=== PATIENT | female | born 1975 | race Caucasian/White ===

== ENCOUNTER 2019-09-10 19:48 | Inpatient (IN) | payer OTHER ==
[~2019-09-10] VITALS: Ht 160 cm; Wt 72.6 kg
[2019-09-10] MEDS ORDERED: ONDANSETRON HCL/PF 4 MG/2 ML VIAL ONE (20:51)
[2019-09-10 20:53] LABS: APPEARANCE,URINE Clear (CLEAR); BILIRUBIN,URINE Negative (NEGATIVE); BLOOD, URINE Trace-intact Ery/uL (NEGATIVE); COLOR,URINE Yellow (YELLOW); KETONES,URINE Negative (NEGATIVE); LEUKOCYTE ESTERASE ,URINE Negative (NEGATIVE); NITRITE, URINE Negative (NEGATIVE); PROTEIN,URINE Negative (NEGATIVE); UGLUCOSE Negative (NEGATIVE); UROBILINOGEN,URINE 0.2 EU/dL (0.2)
[2019-09-10 20:53] LABS: BASOPHILS % (AUTO) 0.5 % (0.0-2.0); EOSINOPHILS % (AUTO) 0.9 % (0.0-6.0); HEMATOCRIT 38 % (33-45); HEMOGLOBIN 12.8 g/dL (11.5-14.8); LYMPHOCYTES # (AUTO) 2.3 /CMM (0.8-4.8); LYMPHOCYTES % (AUTO) 26.9 % (20.0-44.0); MEAN CORPUSCULAR HGB CONC 34 g/dl (31.0-36.0); MEAN CORPUSCULAR VOLUME 88 fL (82-100); MONOCYTES # (AUTO) 0.6 /CMM (0.1-1.30); MONOCYTES % (AUTO) 7.3 % (2.0-12.0); NEUTROPHILS # (AUTO) 5.5 /CMM (1.8-8.9); NEUTROPHILS % (AUTO) 64.4 % (43.0-81.0); PLATELET COUNT (AUTO) 290 /CMM (150-450); RED BLOOD CELL COUNT(AUTO) 4.28 MIL/uL (4.0-5.2); WHITE BLOOD COUNT (AUTO) 8.6 K/uL (4.3-11.0)
[2019-09-10] MEDS ORDERED: IV NS 0.9% 1,000 ML BAG IV ONE (21:00)
[2019-09-10] MEDS ORDERED: ONDANSETRON HCL/PF 4 MG/2 ML VIAL IVP ONE (21:00)
[2019-09-10 21:05] LABS: CALCIUM, SERUM 8.9 mg/dL (8.5-10.1); CREATININE 0.6 mg/dL (0.6-1.3)
[2019-09-10 21:08] LABS: BACTERIA,URINE Many /HPF (None Seen); RBC,URINE 0-2 /HPF (0-2); SQUAMOUS EPITHELIAL CELL,UR Few /HPF (None Seen); WBC,URINE 0-2 /HPF (0-3)
[2019-09-10 21:10] LABS: ALBUMIN 3.5 g/dL (3.4-5.0); BILIRUBIN,TOTAL 0.1 mg/dL (0.2-1.0); TOTAL PROTEIN, SERUM 7.5 g/dL (6.4-8.2)
[2019-09-10] MEDS ORDERED: CT SWABBABLE VALVE TRANS SET 1 EA INFUS.SET MC ONE (21:24)
[2019-09-10] MEDS ORDERED: IV NS 0.9% 250 ML IV ONE (21:24)
[2019-09-10] MEDS ORDERED: IOHEXOL-300 100 ML VIAL IV ONE ×2 (21:24→21:30)
--- NOTE | 2019-09-10 22:36 | NUR ---
GAVE MOVESHEET TO ADMITTING FOR INSURANCE AUTH
[2019-09-10] MEDS ORDERED: PIPERACILLIN /TAZOBACTAM 3.375 G in IV D5W 50 ML IV ONE (23:00)
[2019-09-10] MEDS ORDERED: PIPERACILLIN /TAZOBACTAM 3.375 G VIAL IV ONE (23:42)
[2019-09-11] MEDS ORDERED: ONDANSETRON HCL/PF 4 MG/2 ML VIAL ONE (01:19)
[2019-09-11] MEDS ORDERED: MORPHINE SULFATE INJ 2 MG/ML DISP.SYRIN ONE (01:20)
[2019-09-11] MEDS ORDERED: MORPHINE SULFATE INJ 2 MG/ML DISP.SYRIN IV ONE (01:30)
[2019-09-11] MEDS ORDERED: ONDANSETRON HCL/PF 4 MG/2 ML VIAL IV ONE (01:30)
--- NOTE | 2019-09-11 02:00 | NUR ---
DR TEJADA PAGED PER DR PERSAUD.
--- NOTE | 2019-09-11 02:15 | NUR ---
DR TEJADA PAGED PER DR PERSAUD.
--- NOTE | 2019-09-11 02:45 | NUR ---
DR TEJADA PAGED PER DR PERSAUD.
--- NOTE | 2019-09-11 03:10 | NUR ---
dr mock on the phone w/ dr. mcbride
--- NOTE | 2019-09-11 03:15 | NUR ---
REPORT GIVEN TO MACK GONZALEZ FOR JOHANA.
--- NOTE | 2019-09-11 03:26 | NUR ---
ATTEMPTED TO REACH TO DR. YENI TEJADA SURGEON FOR CONSULT. AWAITING FOR HIS CALL BACK
[2019-09-11 04:00] VITALS: BP 123/86
--- NOTE | 2019-09-11 04:02 | NUR ---
PT TRANSPORTED TO UNIT [facility] BY EMT. NAD NOTED. [facility]
[2019-09-11] MEDS ORDERED: CHOL200026 PO (04:18)
[2019-09-11] MEDS ORDERED: LEVO25TA7 PO (04:18)
--- NOTE | 2019-09-11 04:19 | NUR ---
RN NOTES ADMITTED PATIENT FROM ER, TRANSPORTED VIA WHEELCHAIR, ALERT ORIENTEDX4, COMPLAINTS OF RIGHT LOWER QUADRANT PAIN / AT THIS TIME, BREATHING EVEN AND UNLABORED, ORIENTED TO ROOM AND THE USE OF CALL LIGHT, INITIAL PHYSICAL ASSESSMENT AND ADMISSION PROCESS DONE, SAFETY MEASURES IN PLACE, REPOSITIONED FOR COMFORT, NO NAUSEA AND VOMITING NOTED AT THIS TIME, IV ACCESS ON HER RIGHT AC G#20 INTACT AND PATENT, SKIN IS INTACT. PROVIDED COMFORT, MAINTAINED ON NPO, ALL NEEDS ANTICIPATED, WILL MONITOR ACCORDINGLY.
[2019-09-11] MEDS ORDERED: HYDROCODONE/APAP 5/325MG 1 EACH TABLET PO PRN (04:30)
[2019-09-11] MEDS ORDERED: ONDANSETRON HCL/PF 4 MG/2 ML VIAL IV PRN (04:30)
[2019-09-11] MEDS ORDERED: ACETAMINOPHEN 325 MG TABLET PO PRN (04:30)
[2019-09-11] MEDS ORDERED: HYDROMORPHONE 1 MG/1 ML DISP.SYRIN IV PRN (04:30)
--- NOTE | 2019-09-11 07:02 | NUR ---
RN NOTES ALL NEEDS ATTENDED AND MET, MAINTAINED ON NPO EXCEPT MEDS PER MD ORDER. RESTING COMFORTABLY AT THIS TIME. WILL ENDORSE TO AM NURSE FOR CONTINUITY OF CARE.
[2019-09-11 07:28] LABS: BASOPHILS % (AUTO) 0.4 % (0.0-2.0); EOSINOPHILS % (AUTO) 1.2 % (0.0-6.0); HEMATOCRIT 38 % (33-45); HEMOGLOBIN 12.9 g/dL (11.5-14.8); LYMPHOCYTES # (AUTO) 2.6 /CMM (0.8-4.8); LYMPHOCYTES % (AUTO) 28.8 % (20.0-44.0); MEAN CORPUSCULAR HGB CONC 34 g/dl (31.0-36.0); MEAN CORPUSCULAR VOLUME 88 fL (82-100); MONOCYTES # (AUTO) 0.7 /CMM (0.1-1.30); MONOCYTES % (AUTO) 7.7 % (2.0-12.0); NEUTROPHILS # (AUTO) 5.6 /CMM (1.8-8.9); NEUTROPHILS % (AUTO) 61.9 % (43.0-81.0); PLATELET COUNT (AUTO) 268 /CMM (150-450); RED BLOOD CELL COUNT(AUTO) 4.35 MIL/uL (4.0-5.2)
[2019-09-11 07:46] LABS: CALCIUM, SERUM 8.4 mg/dL (8.5-10.1); CREATININE 0.7 mg/dL (0.6-1.3)
[2019-09-11 08:00] VITALS: BP 113/73
--- NOTE | 2019-09-11 08:00 | NUR ---
RN NOTES RECEIVED PATIENT IN THE BED A/O 4 HAS NO ACUTE RESPIRATORY DISTRESS, V/S STABLE, PATIENT HAS NO COMPLAINING OF PAIN AT THIS TIME, AMBULATORY SELF CARE. CALL LIGHT WITHIN TO REACH, CONTINUED MONITORING.
--- NOTE | 2019-09-11 13:00 | NUR ---
RN NOTES PATIENT EAT 25% LUNCH BECAUSE PER SCALE INSTALLER ANNITA POSSIBLE SURGERY TOMORROW. NOTIFIED Dr TEJADA AND PER SURGEON KEEP PATIENT NPO POSSIBLE LATE SURGERY. ORDER TAKEN AND CARRIED OUT.
[2019-09-11] MEDS ORDERED: PIPERACILLIN /TAZOBACTAM 3.375 G in IV D5W 50 ML IV ONE (14:00)
[2019-09-11 16:00] VITALS: BP 122/75
--- NOTE | 2019-09-11 18:20 | NUR ---
rn notes Patient sign consent form , NPO possible surgery.
--- NOTE | 2019-09-11 18:30 | NUR ---
RN NOTES PATIENT IN THE BED REFUSED PAIN, NO NAUSEA/VOMITING AT THIS TIME, NPO. FAMILY NEXT TO THE BED, CALL LIGHT WITHIN TO REACH. ENDORSED ONCOMING NURSE FOLLOW PLAN OF CARE.
--- NOTE | 2019-09-11 19:53 | NUR ---
RN NOTES RECEIVED PATIENT AWAKE ALERT ORIENTED X4, AND DAUGHTER AT BEDSIDE. SAFETY MEASURES IN PLACE, CALL LIGHT WITH IN EASY REACH. BREATHING EVEN AND UNLABORED, NO SIGNS OF ACUTE DISTRESS NOTED, PAIN IS MANAGEABLE AT THIS TIME, IV ACCESS ON HER RIGHT AC G#18 INTACT AND PATENT. PATIENT WANTS TO KNOW IF SURGERY WILL BE TONIGHT, INFORMED HER THAT OF THIS TIME THERE IS NO OR SCHEDULE YET. WILL INFORM HER SOON SCHEDULE WILL BE POSTED. PER RN, LEELEE ROD NURSE, REPORTED THAT IT'S POSSIBLE TO HAVE SURGERY TONIGHT. WILL CONTINUE TO MONITOR ACCORDINGLY.
[2019-09-11 20:25] VITALS: BP 120/79
[2019-09-11] MEDS: PIPERACILLIN /TAZOBACTAM 3.375 G in IV D5W 100 ML IV SCH (21:34)
[2019-09-11] MEDS ORDERED: ANESTHESIA TRAY IN PYXIS 1 EA TRAY MC ONE (21:51)
[2019-09-11] MEDS ORDERED: FENTANYL PF 100MCG/2ML AMPUL ONE ×2 (21:58→23:32)
[2019-09-11] MEDS ORDERED: ROCURONIUM BROMIDE 50 MG/5 ML ONE (21:59)
[2019-09-11] MEDS ORDERED: MIDAZOLAM HCL 2 MG/2ML VIAL ONE (21:59)
--- NOTE | 2019-09-11 22:35 | NUR ---
RN NOTES PATIENT HAS BEEN PICKED UP BY OR NURSE / STAFF FOR LAPAROSCOPIC APPENDECTOMY.
[2019-09-11] MEDS ORDERED: BUPIVACAINE 0.5 % PF 150 MG/30 ML VIAL ONE (22:39)
[2019-09-11] MEDS ORDERED: LIDOCAINE 1%-EPI 1:100,000 20 ML VIAL ONE (22:39)
--- NOTE | 2019-09-11 23:50 | NUR ---
RN NOTES RECEIVED REPORT FROM MACK LITTLE FROM RECOVERY ROOM.
--- NOTE | 2019-09-11 23:51 | NUR ---
RN NOTES CALLED AND SPOKE WITH PATIENTS' DAUGHTER ALISSA ) INFORMED HER REGARDING PATIENT'S CURRENT CONDITION.
[2019-09-12] VITALS (7 sets, daily range): BP systolic 101–131; BP diastolic 55–83
--- NOTE | 2019-09-12 00:15 | NUR ---
RN NOTES CAME BACK FROM RECOVERY ROOM, REPORT GIVEN BY MACK LITTLE. STATUS POST LAPAROSCOPY APPENDECTOMY, PATIENT NOT IN ANY ACUTE DISTRESS NOTED, VITAL SIGNS TAKEN AND RECORDED. BP 110/70, HR 66, RR 18, TEMPERATURE 98.2 SATING 96%. WILL CONTINUE TO MONITOR.
[2019-09-12] MEDS: PIPERACILLIN /TAZOBACTAM 3.375 G in IV D5W 100 ML IV SCH (04:53)
--- NOTE | 2019-09-12 06:06 | NUR ---
RN NOTES ALL NEEDS ATTENDED AND MET. ABLE TO REST AND SLEPT AT INTERVALS. PATIENT STATES THAT SHE IS PASSING GAS FOR 2 HOURS, OFFERED ICE CHIPS BUT REFUSED AT THIS TIME. NEEDS ANTICIPATED, CALL LIGHT WITHIN EASY REACH. WILL ENDORSE TO AM NURSE FOR CONTINUITY OF CARE.
[2019-09-12 06:32] LABS: CALCIUM, SERUM 8.8 mg/dL (8.5-10.1); CREATININE 0.8 mg/dL (0.6-1.3); POTASSIUM 4.4 mmol/L (3.5-5.1)
[2019-09-12 06:41] LABS: HEMATOCRIT 40 % (33-45); HEMOGLOBIN 13.2 g/dL (11.5-14.8); LYMPHOCYTES # (AUTO) 0.6 /CMM (0.8-4.8); LYMPHOCYTES % (AUTO) 4.2 % (20.0-44.0); MEAN CORPUSCULAR HGB CONC 33 g/dl (31.0-36.0); MEAN CORPUSCULAR VOLUME 88 fL (82-100); MONOCYTES # (AUTO) 0.1 /CMM (0.1-1.30); NEUTROPHILS # (AUTO) 14.2 /CMM (1.8-8.9); NEUTROPHILS % (AUTO) 94.8 % (43.0-81.0); PLATELET COUNT (AUTO) 293 /CMM (150-450); RED BLOOD CELL COUNT(AUTO) 4.52 MIL/uL (4.0-5.2); WHITE BLOOD COUNT (AUTO) 14.9 K/uL (4.3-11.0)
--- NOTE | 2019-09-12 08:00 | NUR ---
RN NOTES RECEIVED PATIENT IN THE BED SLEEPING, NO ACUTE RESPIRATORY DISTRESS, V/S WNL, PATIENT AROUSE WHEN CALLED NAME OR TOUCHED, PATIENT REFUSED PAIN, INFUSING ZOSYN 100 ML/HR ON RIGHT AC AREA INTACT. SEEN PATIENT BY HOSPITALIST Dr DIANA. PATIENT WILL DISCHARGE HOME TODAY AFTER EATING, AMBULATING, AND WITH OK OF SURGEON Dr TEJADA. CALL LIGHT WITHIN TO REACH, SAFETY PRECAUTION MAINTAINED ALL THE TIME.
[2019-09-12] MEDS ORDERED: HYDR-3972 PO (08:21)
[2019-09-12] MEDS ORDERED: AMOX-427 PO (08:21)
--- NOTE | 2019-09-12 12:44 | NUR ---
FUR BLOWING MACHINE ATTENDANT NOTES PATIENT DISCHARGE BACK TO THE HOME SELF CARE. PATIENT STABLE , REFUSED PAIN, WOUND INTACT, NO REDNESS, V/S STABLE. PATIENT AMBULATORY SELF CARE. PICTURE TAKEN. MED RECONCILIATION AND DISCHARGE ORDER REVIEWED AND EXPLAINED TO THE PATIENT. PATIENT WILL FOLLOW SURGEON IN ONE WEEK, AND TAKE ANTIBIOTIC X5 DAYS. PATIENT SIGN PAPERWORK, PRESCRIPTION HANDED TO THE PATIENT, BELONGING WITH THE PATIENT. ESCORTED PATIENT TO THE LOBBY FOR SAFETY. PATIENT GATE AGENT BY SON NAME IDALIA PHONE # [phone].
== END 2019-09-12 12:30 | disposition home or self-care (01) | DRG 234 ==
LOC: ER 19:49 → MED 09-11 02:55
PROVIDERS: ADMIT Internal Medicine; ATTEND Internal Medicine
PROC: 0DTJ4ZZ Resection of Appendix, Percutaneous Endoscopic Approach (ICD-10-PCS; principal; 2019-09-11)
DX: K35.80 Unspecified acute appendicitis (principal); E83.51 Hypocalcemia; E03.9 Hypothyroidism, unspecified; K42.9 Umbilical hernia without obstruction or gangrene; K40.20 Bilateral inguinal hernia, without obstruction or gangrene, not specified as recurrent; E66.3 Overweight; Z68.28 Body mass index [BMI] 28.0-28.9, adult
CPT/HCPCS: 36415; 80048-TC; 80076-TC; 81000-TC; 83690-TC; 83735-TC; 84703-TC; 85025-TC; 85730-TC; 86850-TC; 87081-TC; 87086-TC; 88304-TC; A4216; G0378; J1100; J1885; J2250; J2270; J2405; J2543; J2704; J2710; J3010; J3490; J7030; J7050; J7060; Q9967

== ENCOUNTER 2019-10-05 19:28 | Emergency (ER) | payer OTHER ==
[~2019-10-05] VITALS: Ht 160 cm; Wt 73.0 kg
[~2019-10-05 19:28] MED LIST: AMOX-427 PO; CHOL200026 PO; HYDR-3972 PO; LEVO25TA7 PO
--- NOTE | 2019-10-05 19:34 | NUR ---
PT CAME INTO THE ED C/O FEVER, CHILLS, LOWER ABDOMINAL PAIN SINCE LAST NIGHT S/P APPENDECTOMY 09/11. PT AAOX4, RR EVEN AND UNLABORED ON RA W/ NAD NOTED. PT CONNCTED TO THE MONITOR AND POX
--- NOTE | 2019-10-05 19:35 | NUR ---
URINE SAMPLE COLLECTED AND SENT TO LAB.
--- NOTE | 2019-10-05 19:37 | NUR ---
BLOOD COLLECTED AND SENT TO LAB
[2019-10-05 19:57] LABS: APPEARANCE,URINE Clear (CLEAR); BILIRUBIN,URINE Negative (NEGATIVE); BLOOD, URINE Trace-intact Ery/uL (NEGATIVE); COLOR,URINE Yellow (YELLOW); KETONES,URINE Negative (NEGATIVE); LEUKOCYTE ESTERASE ,URINE Negative (NEGATIVE); NITRITE, URINE Negative (NEGATIVE); PH,URINE 5.5 (5.0-8.0); PROTEIN,URINE Negative (NEGATIVE); UGLUCOSE Negative (NEGATIVE); UROBILINOGEN,URINE 0.2 EU/dL (0.2)
[2019-10-05 19:57] LABS: BASOPHILS % (AUTO) 0.4 % (0.0-2.0); EOSINOPHILS % (AUTO) 0.7 % (0.0-6.0); HEMATOCRIT 38 % (33-45); HEMOGLOBIN 12.9 g/dL (11.5-14.8); LYMPHOCYTES # (AUTO) 2.3 /CMM (0.8-4.8); LYMPHOCYTES % (AUTO) 27.5 % (20.0-44.0); MEAN CORPUSCULAR HGB CONC 34 g/dl (31.0-36.0); MEAN CORPUSCULAR VOLUME 88 fL (82-100); MONOCYTES # (AUTO) 0.6 /CMM (0.1-1.30); MONOCYTES % (AUTO) 7.3 % (2.0-12.0); NEUTROPHILS # (AUTO) 5.4 /CMM (1.8-8.9); NEUTROPHILS % (AUTO) 64.1 % (43.0-81.0); PLATELET COUNT (AUTO) 278 /CMM (150-450); RED BLOOD CELL COUNT(AUTO) 4.35 MIL/uL (4.0-5.2); WHITE BLOOD COUNT (AUTO) 8.5 K/uL (4.3-11.0)
[2019-10-05] MEDS ORDERED: IV NS 0.9% 1,000 ML BAG IV ONE (20:00)
[2019-10-05 20:03] LABS: CALCIUM, SERUM 8.8 mg/dL (8.5-10.1); CREATININE 0.7 mg/dL (0.6-1.3); POTASSIUM 3.9 mmol/L (3.5-5.1)
[2019-10-05 20:08] LABS: BACTERIA,URINE Few /HPF (None Seen); SQUAMOUS EPITHELIAL CELL,UR Few /HPF (None Seen); WBC,URINE 0-2 /HPF (0-3)
[2019-10-05 20:09] LABS: ALBUMIN 3.6 g/dL (3.4-5.0); BILIRUBIN,TOTAL 0.1 mg/dL (0.2-1.0); TOTAL PROTEIN, SERUM 7.5 g/dL (6.4-8.2)
[2019-10-05] MEDS ORDERED: CT SWABBABLE VALVE TRANS SET 1 EA INFUS.SET MC ONE (20:24)
[2019-10-05] MEDS ORDERED: IOHEXOL-300 100 ML VIAL IV ONE (20:24)
--- NOTE | 2019-10-05 20:33 | NUR ---
PT BROUGHT TO CT
--- NOTE | 2019-10-05 20:36 | NUR ---
PT BACK FROM CT
--- NOTE | 2019-10-05 21:34 | NUR ---
Arti beltran in [facility] - 10/05/19 at 2134 by MICHAEL IV Patient discharged to home in stable condition. Written and verbal after care instructions given. Patient verbalizes understanding of instruction.
--- NOTE | 2019-10-05 21:34 | NUR ---
Patient discharged to home in stable condition. Written and verbal after care instructions given. Patient verbalizes understanding of instruction.IV removed. Catheter intact and site benign. Pressure and 4x4 applied to site. No bleeding noted.
[2019-10-05 21:35] VITALS: BP 127/81
== END 2019-10-05 21:37 | disposition home or self-care (01) ==
LOC: ER 19:28
DX: G89.18 Other acute postprocedural pain (principal); E03.9 Hypothyroidism, unspecified; Z79.899 Other long term (current) drug therapy
CPT/HCPCS: 36415; 74177; 80048; 80076; 81001; 83690; 84703; 85025; 87804 ×2; 99284; J7030; Q9967; 81000-TC

== ENCOUNTER 2020-02-21 22:15 | Emergency (ER) | payer OTHER ==
[~2020-02-21] VITALS: Ht 160 cm; Wt 74.8 kg
[2020-02-21] MEDS ORDERED: IV NS 0.9% 500 ML BAG IV ONE (22:30)
[2020-02-21] MEDS ORDERED: ONDANSETRON HCL/PF 4 MG/2 ML VIAL IVP ONE (22:30)
[2020-02-21] MEDS ORDERED: ONDANSETRON HCL/PF 4 MG/2 ML VIAL ONE (22:35)
[2020-02-21 22:45] LABS: BASOPHILS % (AUTO) 0.4 % (0.0-2.0); EOSINOPHILS % (AUTO) 1.1 % (0.0-6.0); HEMATOCRIT 39 % (33-45); HEMOGLOBIN 13.2 g/dL (11.5-14.8); LYMPHOCYTES # (AUTO) 2.2 /CMM (0.8-4.8); LYMPHOCYTES % (AUTO) 25.3 % (20.0-44.0); MEAN CORPUSCULAR HGB CONC 34 g/dl (31.0-36.0); MEAN CORPUSCULAR VOLUME 89 fL (82-100); MONOCYTES # (AUTO) 0.6 /CMM (0.1-1.30); MONOCYTES % (AUTO) 6.7 % (2.0-12.0); NEUTROPHILS # (AUTO) 5.7 /CMM (1.8-8.9); NEUTROPHILS % (AUTO) 66.5 % (43.0-81.0); PLATELET COUNT (AUTO) 290 /CMM (150-450); RED BLOOD CELL COUNT(AUTO) 4.38 MIL/uL (4.0-5.2); WHITE BLOOD COUNT (AUTO) 8.6 K/uL (4.3-11.0)
--- NOTE | 2020-02-21 22:51 | NUR ---
Arti beltran in [facility] - 02/21/20 at 2251 by NEVILLE madelyn
--- NOTE | 2020-02-21 22:51 | NUR ---
bibdaughter from home to er bed 6. aaox4. not in resp distress, breathing even and unlabored. ambulatory. came in for generalized weakness, headache and cough for the past 3 days. per pt, denies any fever. pt did report slight sputum but getting better since thursday. was at the bedside for eval. orders received noted and carried out.
[2020-02-21 22:59] LABS: ALANINE AMINOTRANSFERASE 43 U/L (12-78); ALBUMIN 3.6 g/dL (3.4-5.0); ALKALINE PHOSPHATASE 68 U/L (46-116); ASPARTATE AMINOTRANSFERASE 16 U/L (15-37); BILIRUBIN,TOTAL 0.1 mg/dL (0.2-1.0); CARBON DIOXIDE 29 mmol/L (21-32); CHLORIDE 106 mmol/L (98-107); CREATININE 0.7 mg/dL (0.6-1.3); GLUCOSE 140 mg/dL (74-106); POTASSIUM 4.1 mmol/L (3.5-5.1); SODIUM SERUM 141 mmol/L (136-145); TOTAL PROTEIN, SERUM 7.3 g/dL (6.4-8.2); UREA NITROGEN, BLOOD 13 mg/dL (7-18)
[2020-02-21 23:44] LABS: T4 (THYROXINE) 8.3 ug/dL (4.7-13.3); THYROID STIMULATING HORMONE 1.505 uIU/mL (0.358-3.74)
[2020-02-21] MEDS ORDERED: CEFTRIAXONE 1GM BAG (ER ONLY) 50 ML IV ONE (23:53)
[2020-02-21] MEDS ORDERED: AZITHROMYCIN 250 MG TABLET ONE (23:54)
[2020-02-22] MEDS ORDERED: AZITHROMYCIN 250 MG TABLET PO ONE
[2020-02-22] MEDS ORDERED: CEFTRIAXONE 1GM BAG (ER ONLY) 1 GM/50 ML PIGGYBACK IV ONE
--- NOTE | 2020-02-22 00:23 | NUR ---
Patient discharged to home in stable condition. Written and verbal after care instructions given. Patient verbalizes understanding of instruction and RX. IV removed. Catheter intact and site benign. Pressure and 4x4 applied to site. No bleeding noted.
[2020-02-22 00:24] VITALS: BP 128/62
== END 2020-02-22 00:32 | disposition home or self-care (01) ==
LOC: ER 22:15
DX: J18.9 Pneumonia, unspecified organism (principal); R53.1 Weakness; R51 Headache; R05 Cough; E03.9 Hypothyroidism, unspecified; Z90.89 Acquired absence of other organs; Z79.899 Other long term (current) drug therapy
CPT/HCPCS: 36415; 70450; 71045; 80048; 80076; 84436; 84439; 84443; 84480; 84481; 84484; 85025; 96365; 96375; 99285; J0696; J2405; J7040

== ENCOUNTER 2020-03-11 15:54 | Emergency (ER) | payer OTHER ==
[~2020-03-11] VITALS: Ht 172.7 cm; Wt 74.8 kg
[2020-03-11 16:03] VITALS: BP 133/80
--- NOTE | 2020-03-11 16:27 | NUR ---
Patient left without being seen by ER Physician
== END 2020-03-11 16:27 | disposition left against medical advice (07) ==
LOC: ER 16:01
DX: Z53.21 Procedure and treatment not carried out due to patient leaving prior to being seen by health care provider (principal); R42 Dizziness and giddiness; E03.9 Hypothyroidism, unspecified; Z98.890 Other specified postprocedural states